=== PATIENT | male | born 1990 | race African-American/Black ===

== ENCOUNTER 2019-04-03 14:18 | Emergency (ER) | payer MEDICARE, MEDICAID ==
[~2019-04-03] VITALS: Ht 160 cm; Wt 68.0 kg
[2019-04-03] VITALS (9 sets, daily range): BP systolic 95–132; BP diastolic 60–73
[2019-04-03 15:06] LABS: BASO # 0.1 10*3/uL (0.0-0.1); BASO % 1.2 % (0.0-1.0); EOS # 0.1 10*3/uL (0.0-0.4); EOS % 1.5 % (1.0-4.0); HEMATOCRIT 49.1 % (42.0-52.0); HEMOGLOBIN 16.6 g/dl (14.0-18.0); LYMPH % 40.9 % (27.0-41.0); MEAN CELL VOLUME 81.3 fl (80.0-94.0); MEAN CORPUSCULAR HGB 27.5 pg (27.0-31.0); MEAN CORPUSCULAR HGB CONC 33.8 g/dl (33.0-37.0); MEAN PLATELET VOLUME 9.1 fl (9.6-12.3); MONO # 0.6 10*3/uL (0.1-1.0); MONO % 8.2 % (3.0-9.0); NEUT # 3.6 10*3/uL (2.3-7.9); NEUT % 47.8 % (47.0-73.0); PLATELET COUNT AUTOMATED 415 10*3/uL (130-400); RED BLOOD COUNT 6.04 10*6/uL (4.50-5.90); RED CELL DISTRI WIDTH 16.9 % (0-14.5); WHITE BLOOD COUNT 7.4 10*3/uL (4.8-10.8)
[2019-04-03 15:19] LABS: BILIRUBIN NEGATIVE (NEGATIVE); BLOOD NEGATIVE (NEGATIVE); CLARITY CLEAR (CLEAR); COLOR YELLOW (YELLOW); GLUCOSE NEGATIVE (NEGATIVE); KETONE NEGATIVE (NEGATIVE); LEUKO ESTERASE NEGATIVE (NEGATIVE); NITRITE NEGATIVE (NEGATIVE); PH 7.5 (5.0-9.0); UROBILINOGEN 0.2 E.U./dl (0.2-1.0)
[2019-04-03 15:21] LABS: ACT PARTIAL THROMBO TIME 27.9 SECONDS (20.0-32.1); INTERNATIONAL NORM RATIO 1.1 (2.0-3.5)
[2019-04-03 15:26] LABS: URINE AMPHETAMINES < 1000 (1000ng/ml); URINE BARBITURATES < 200 (200ng/ml); URINE BENZODIAZEPINES > 200 (200ng/ml); URINE CANNABINOIDS (THC) > 50 (50ng/ml); URINE COCAINE < 300 (300ng/ml); URINE METHADONE < 300 (300ng/ml); URINE OPIATES < 300 (300ng/ml)
[2019-04-03 15:27] LABS: URINE PHENCYCLIDINE < 25 (25ng/ml)
[2019-04-03 15:32] LABS: ALBUMIN 4.2 gm/dl (3.1-4.5); ALKALINE PHOSPHATASE 109 U/L (45-117); BUN 17 mg/dl (7-24); CHLORIDE 96 mmol/L (98-107); CREATININE 1.57 mg/dL (0.70-1.30); LIPASE 131 U/L (73-393); POTASSIUM 2.7 mmol/L (3.5-5.1); SGOT/AST 19 IU/L (3-35); SGPT/ALT 40 U/L (12-78); SODIUM 133 mmol/L (136-145); TOTAL PROTEIN 8.5 gm/dL (6.4-8.2)
[2019-04-03 15:42] LABS: EPITHELIAL CELLS 0-2
--- NOTE | 2019-04-03 17:05 | NUR ---
PT APPEARS TO BE HAVING A SEIZURE AT THIS TIME. HE IS DRAWING UP/HANDS CLENCHING. NON VERBAL AT THIS TIME. JEOVANNY DEPUTY SHERIFF CHIEF CALLED TO BEDSIDE. ORDERS FOR ATIVAN GIVEN. PULSE OX REMAINS AT 100% VS ARE STABLE. KIRSTIN TAYLOR
--- NOTE | 2019-04-03 18:05 | NUR ---
PT IS RESTING NOW,APPEARS AWAKE,BUT DROWSY. NO SEIZURE ACTIVITY IS NOTED. FAMILY AT BEDSIDE. ARRANGEMENTS ARE BEING MADE TO TRANSFER THIS PT TO [facility] FOR NEUROLOGY CARE. VS ARE STABLE. RESPIRATIONS ARE NON-LABORED. KIRSTIN TAYLOR
--- NOTE | 2019-04-03 19:05 | NUR ---
REPORT FROM MARLENE TAYLOR, ASSUMED CARE OF PT, PT RESTING WITH EASY RESP, AWAITING READY BED FOR TRANSFER, SEIZURE PADS INTACT ON BED, SR ON MONITOR, CALL MACHUCA IN REACH, WILL CONTINUE TO MONITOR PT
--- NOTE | 2019-04-03 19:43 | NUR ---
RECEIVED CALL FROM [facility]. PT ASSIGNED ROOM 8518-A AND NUMBER FOR REPORT GIVEN TO BRANDON REDDING.
--- NOTE | 2019-04-03 19:53 | NUR ---
REPORT TO HAO TAYLOR AT [facility] FOR TRANSFER
--- NOTE | 2019-04-03 20:54 | NUR ---
PT TRANSFERED TO [facility]IA [facility] IN NO ACUTE DISTRESS, RESP EASY, BELONGINGS WITH PT, SALINE LOCK INTACT WITH NO REDNESS OR SWELLING NOTED, COPY OF CHART WITH EMS
--- NOTE | 2019-04-03 20:59 | NUR ---
Transfer Out, from the Emergency Department - Stable This patient, ANGELITA SEBASTIAN, 28[birth year], [id number], [id number], was examined by the Emergency Department physician, [facility] and efforts were made to stabilize the patient. The patient's condition is stable. The reason for transfer is need higher level of care . The Emergency physician has made the decision to transfer the patient out. Refer to the ED physician's dictation for the family/back-up physician notified. The attending physician has spoken to the accepting physician at the receiving facility, . Refer to the ED physician's dictation. The receiving facility has space and qualified personnel to care for the patient, and has agreed to accept the patient. Proper equipment and trained personnel have been arranged. The mode of transport is ground. The agency is [facility]. The Emergency physician has spoken to the transport staff re: patient's condition and needs during transport. Copies of the medical record have been forwarded to the receiving facility, including: - Emergency Department record: - name, address, hospital number, age, next of kin - presenting problem - history of injury, past medical history - treatment, medications & route, fluid type & volume - lab and xray findings, films - physical findings - vitals signs -- prehospital, emergency, pre-transfer - preliminary diagnosis - status/condition - emergency medical services record - consent for transfer - authorization for record release - name of any involed physicians -- responsive or not - name and address of referring physician - name of contact physician at receiving facility - name of accepting physician at receiving facility Nursing report has been given to TAYLER TAYLOR Valuables include . and were given to .VAHID JENNINGS
== END 2019-04-03 20:54 | disposition short-term general hospital (02) ==
LOC: ED 14:18 → EDHOLD 16:36 → ED 16:36 → EDHOLD 17:28 → 4E 17:28 → ED 20:54
PROVIDERS: Nurse Practitioner Family
DX: G40.909 Epilepsy, unspecified, not intractable, without status epilepticus (principal); E87.6 Hypokalemia; R79.1 Abnormal coagulation profile; F17.200 Nicotine dependence, unspecified, uncomplicated; Z88.8 Allergy status to other drugs, medicaments and biological substances

== ENCOUNTER 2019-05-01 13:50 | Emergency (ER) | payer MEDICARE, MEDICAID ==
[~2019-05-01] VITALS: Ht 162.5 cm; Wt 68.0 kg
--- NOTE | ~2019-05-01 | EKG ---
[place], [place] ELECTROCARDIOGRAM REPORT NAME: ANGELITA SEBASTIAN UNIT #: [id number] ROOM: DOCTOR: EPIPHANY DRAFT REPORT BIRTHDATE: [birth year] [facility] Test Date: 2019-05-01 Test Time: 16:45:05 Pat Name: ANGELITA SEBASTIAN Department: Room: 405 Gender: M Shrimp Packer: EKG.AL : 1990 Requested By: SAILAJA RIVERA Order Number: [id number] Reading MD: Juan Ramon Azul Measurements Intervals [place] Rate: 84 P: 62 CA: 128 QRS: 13 QRSD: 92 T: 33 QT: 375 QTc: 444 Interpretive Statements Sinus rhythm Compared to ECG 04/03/2019 16:01:55 No significant changes Electronically Signed On 05-02-2019 7:42:46 PST by Juan Ramon Azul CM:EKGRPT:ELECTROCARDIOGRAM REPORT [id number] SAILAJA OLSON DRAFT REPORT SAILAJA RIVERA MD
[2019-05-01 13:51] VITALS: BP 123/72
[2019-05-01 15:34] LABS: BASO % 0.4 % (0.0-1.0); HEMOGLOBIN 15.5 g/dl (14.0-18.0); LYMPH # 1.1 10*3/uL (1.3-4.4); LYMPH % 12.3 % (27.0-41.0); MEAN CELL VOLUME 84.7 fl (80.0-94.0); MEAN CORPUSCULAR HGB 27.9 pg (27.0-31.0); MEAN PLATELET VOLUME 9.3 fl (9.6-12.3); MONO # 0.5 10*3/uL (0.1-1.0); MONO % 5.6 % (3.0-9.0); NEUT # 7.3 10*3/uL (2.3-7.9); NEUT % 81.3 % (47.0-73.0); PLATELET COUNT AUTOMATED 393 10*3/uL (130-400); RED BLOOD COUNT 5.55 10*6/uL (4.50-5.90); RED CELL DISTRI WIDTH 16.8 % (0-14.5); WHITE BLOOD COUNT 8.9 10*3/uL (4.8-10.8)
[2019-05-01 15:42] LABS: BILIRUBIN NEGATIVE (NEGATIVE); BLOOD NEGATIVE (NEGATIVE); CLARITY CLEAR (CLEAR); COLOR YELLOW (YELLOW); GLUCOSE NEGATIVE (NEGATIVE); KETONE NEGATIVE (NEGATIVE); LEUKO ESTERASE NEGATIVE (NEGATIVE); NITRITE NEGATIVE (NEGATIVE); UROBILINOGEN 0.2 E.U./dl (0.2-1.0)
[2019-05-01 15:42] LABS: URINE AMPHETAMINES < 1000 (1000ng/ml); URINE BARBITURATES < 200 (200ng/ml); URINE BENZODIAZEPINES > 200 (200ng/ml); URINE CANNABINOIDS (THC) > 50 (50ng/ml); URINE COCAINE < 300 (300ng/ml); URINE METHADONE < 300 (300ng/ml); URINE OPIATES < 300 (300ng/ml)
[2019-05-01 15:44] LABS: URINE PHENCYCLIDINE < 25 (25ng/ml)
[2019-05-01 15:51] LABS: ALBUMIN 4.1 gm/dl (3.1-4.5); ALKALINE PHOSPHATASE 119 U/L (45-117); BUN 16 mg/dl (7-24); CHLORIDE 97 mmol/L (98-107); CREATININE 1.54 mg/dL (0.70-1.30); POTASSIUM 2.7 mmol/L (3.5-5.1); SGOT/AST 24 IU/L (3-35); SGPT/ALT 42 U/L (12-78); SODIUM 132 mmol/L (136-145); TOTAL PROTEIN 9.1 gm/dL (6.4-8.2)
[2019-05-01 15:59] LABS: BACTERIA TRACE; EPITHELIAL CELLS 0-2; WBC 0-2 wbc/hpf (0-5)
[2019-05-01 16:40] VITALS: BP 140/68
--- NOTE | 2019-05-01 21:58 | NUR ---
REPORT CALLED TO [facility] .
== END 2019-05-01 22:36 | disposition short-term general hospital (02) ==
LOC: ED 13:50 → EDHOLD 16:10 → ED 16:10 → EDHOLD 16:34 → 4E 16:34 → ED 22:36
PROVIDERS: Emergency Medicine
DX: E87.6 Hypokalemia (principal); G40.909 Epilepsy, unspecified, not intractable, without status epilepticus; R25.1 Tremor, unspecified; R51 Headache; R11.0 Nausea; R20.2 Paresthesia of skin; F12.90 Cannabis use, unspecified, uncomplicated; F17.200 Nicotine dependence, unspecified, uncomplicated; Z88.8 Allergy status to other drugs, medicaments and biological substances